=== PATIENT | female | born 1985 | race Caucasian/White ===

== ENCOUNTER 2023-05-10 09:27 | Emergency (ER) | payer OTHER, SELFPAY ==
[2023-05-10 09:36] VITALS: BP 145/104
--- NOTE | 2023-05-10 10:22 | ED.GENMED ---
History of Present Illness
General
Chief Complaint: Blood Pressure Problem
Time Seen by Provider: 05/10/23 09:57
Travel History
Have you had any contact with someone who has COVID-19?: No
Do you have any symptoms of coronavirus? Fever > 100 degrees, chills, cough, shortness of breath, sore throat, loss of taste or smell, muscle aches, or headache?: No
History of Present Illness
History of Present Illness:
37-year-old female presents to the emergency department for evaluation of sore throat. She was seen in urgent care last week and diagnosed with strep, started on a 5-day course of Augmentin. She states her symptoms did improve but again worsened
shortly after completing Augmentin yesterday. Went back to urgent care today where she had a positive rapid strep test. She notes that over the weekend she had transient hematuria and suprapubic discomfort, was told by urgent care that she could
have bladder cancer and was told to come to the ER for further evaluation. Denies any current lower abdominal pain.
Past History
Past History
ED Past Medical History: GERD (Gastritis) and Other (Spontaneous vaginal delivery . Gastritis, migraines, palpitations, Rectal bleeding, history of breast augmentation and then breast implant removal in July 2018)
ED Past Surgical History: Cholecystectomy and Other (Liver repair from trauma at age 6, breast augmentation, Breat implants removed 07/22)
Social History
Tobacco: Non-smoker
Alcohol: None
Drug: None
Personal:
Living: with family
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
Family History
Family History: Other (Noncontributory)
Review of Systems
Review of Systems
Allergies reviewed?: Yes
All Other Systems: ROS reviewed and negative except as documented in HPI and ROS
Phy Exam
Physical Exam
Physical Exam:
GEN: Well appearing, NAD, WDWN
HEENT: Oral mucosa moist, no scleral icterus. No tonsillar hypertrophy or exudates, uvula midline
Cardiac: Regular rate
Lung: No respiratory distress, no tachypnea
MSK: No gross deformity or injuries
Skin: Good color, no pallor or jaundice, no rashes
Neuro: AO x3, moves all extremities freely
Psych: Calm, cooperative
Course
Orders/Labs/Results
Orders:
Orders
05/10/23 10:33
Basic Metabolic Panel Urgent
Complete Blood Count/No Diff Urgent
Urine Microscopic Urgent
Date Specimen was Collected: 05/10/23
Time Specimen was Collected: 10:31
Abnormal Lab Results
05/10/23
10:33
RBC 4.08 L 10^6/uL
(4.20-5.40)
Hct 36.8 L %
(37.0-47.0)
MCH 31.9 H pg
(27.0-31.0)
MPV 10.5 H fL
(7.4-10.4)
Glucose 112 H mg/dl
(70-99)
05/10/23 10:33
05/10/23 10:33
Vital Signs
Initial and Last Documented VS:
Initial Vital Signs
Temp Pulse Resp BP Pulse Ox
98.6 F 100 18 145/104 97
05/10/23 09:36 05/10/23 09:36 05/10/23 09:36 05/10/23 09:36 05/10/23 09:36
Last Documented Vital Signs
Temp Pulse Resp BP Pulse Ox
98.6 F 90 16 114/73 99
05/10/23 09:36 05/10/23 12:08 05/10/23 12:08 05/10/23 12:08 05/10/23 12:08
MDM/Problems Addressed
MDM/Problems Addressed:
Patient presents from urgent care quite anxious regarding the possibility of bladder cancer as at urgent care she was told this could be a possibility given transient blood in the urine. I have reassured her that she has no risk factors for bladder
cancer particular given her young age and there is no blood in the urine to suggest this. Her labs are reassuring, particularly no evidence of renal injury. She did have a positive strep test at urgent care today, failed a course of Augmentin thus
we will switch to cephalexin for 10 days.
*Critical Care Note
Total Time (30-74mins, 75-104mins- exclusive of procedures): Not Applicable
ED Attending Note
-
Portions of this chart may have been created with voice recognition software.� Occasional wrong word or��sound alike� substitutions may have occurred due to the inherent limitations of voice recognition software.
Discharge Plan
Departure
Patient Disposition: Home (Routine Discharge)
Date of Disposition: 05/10/23
Time of Disposition: 12:00
Patient with high blood pressure during this ER visit?: No
Discharge Problem:
Acute streptococcal pharyngitis
Instructions: Strep Throat ED
Prescriptions:
New
cephalexin 500 mg tablet
500 mg PO BID 10 Days Qty: 20 0RF
No Action
pediatric multivitamin no.17 [Children's Chew Multivitamin] 1 EACH tablet,chewable
1 ea PO DAILY
Referrals:
Sanya Lora MD [Family Provider] -
Interventions
Interventions:
*Risk Screen - Suicide Last Done: 05/10/23 09:36
*General Assessment Last Done: 05/10/23 09:36
*Neglect/Abuse Screening Last Done: 05/10/23 09:36
ED- Fall Risk Assessment Last Done: 05/10/23 10:02
*ED COVID-19 Vaccine History Last Done: 05/10/23 09:36
*Nursing Disposition Last Done: 05/10/23 12:09
ED- Cardiac Assessment Last Done: 05/10/23 10:02
ED- Neurological Assessment Last Done: 05/10/23 10:02
ED- Pulmonary Assessment Last Done: 05/10/23 10:02
Discharge Date and Time
Discharge Date/Time: 05/10/23 12:09
[2023-05-10 10:53] LABS: Hematocrit 36.8 % (37.0-47.0); Mean Corp Hgb Conc. 35.3 g/dL (33.0-37.0); Mean Corpuscular Hgb 31.9 pg (27.0-31.0); Mean Corpuscular Volume 90.2 fL (81.0-99.0); Mean Platelet Volume 10.5 fL (7.4-10.4); Platelet Count 202 10^3/uL (130-400); Red Blood Cell Count 4.08 10^6/uL (4.20-5.40); Red Cell Dist. Width 11.9 % (11.5-14.5); White Blood Cell Count 6.8 10^3/uL (4.8-10.8)
[2023-05-10 11:14] LABS: Blood Urea Nitrogen 7 mg/dl (7-17); Calcium 9.2 mg/dl (8.4-10.2); Carbon Dioxide 26 mmol/L (22-30); Chloride 105 mmol/L (98-107); Glucose 112 mg/dl (70-99); Potassium 3.8 mmol/L (3.5-5.1); Sodium 138 mmol/L (135-145); eGFR > 60.00
[2023-05-10 11:57] LABS: Urine Amorphous Seen; Urine Red Blood Cell 0-2 /HPF (0-2); Urine White Cell 0-2 /HPF (0-5)
[2023-05-10 12:08] VITALS: BP 114/73
== END 2023-05-10 12:09 | disposition home or self-care (01) ==
LOC: EMR 09:27
PROVIDERS: Physician Assistant; EMERGENCY PHYSICIAN Emergency Medicine; FAMILY PHYSICIAN Internal Medicine
DX: J02.0 Streptococcal pharyngitis (principal)
CPT/HCPCS: 99283; 80048; 81015; 85027

== ENCOUNTER → 2023-05-11 12:21 | Outpatient (REF) | payer OTHER, SELFPAY ==
[2023-05-11 19:52] LABS: Urine Albumin Negative (Neg - Trace); Urine Bilirubin Negative (Negative); Urine Character Clear (Clear); Urine Color Straw; Urine Glucose Negative (Negative); Urine Ketone Negative (Negative); Urine Leukocyte Negative (Negative); Urine Nitrite Negative (Negative); Urine Occult Blood Negative (Negative); Urine Specific Gravity 1.005 (<1.030); Urine Urobilinogen Negative (Neg - 1+)
== END ==
LOC: CLAB 12:21
PROVIDERS: ATTENDING PHYSICIAN Physician Assistant
DX: R39.9 Unspecified symptoms and signs involving the genitourinary system (principal)
CPT/HCPCS: 81003; 87086

== ENCOUNTER 2023-06-02 16:37 | Emergency (ER) | payer OTHER, SELFPAY ==
[2023-06-02 16:48] VITALS: BP 146/83
[2023-06-02 17:19] LABS: Urine Albumin Negative (Neg - Trace); Urine Bilirubin Negative (Negative); Urine Character Very Cloudy (Clear); Urine Color Yellow; Urine Glucose Negative (Negative); Urine Ketone Negative (Negative); Urine Leukocyte Negative (Negative); Urine Nitrite Negative (Negative); Urine Occult Blood Negative (Negative); Urine Urobilinogen Negative (Neg - 1+)
[2023-06-02 17:21] LABS: % Basophils 0.9 % (0-2); % Eosinophils 1.2 % (0-6); % Immature Granulocytes 0.3 % (0-0.5); % Lymphocytes 21.7 % (20.5-51.1); % Monocytes 7.5 % (1.7-9.3); % Neutrophils 68.4 % (42.2-75.2); Absolute Basophils 0.1 10^3/uL (0-0.2); Absolute Eosinophils 0.1 10^3/uL (0-0.7); Absolute Lymphocytes 1.3 10^3/uL (1.2-3.4); Absolute Monocytes 0.4 10^3/uL (0.1-0.6); Hematocrit 37.7 % (37.0-47.0); Hemoglobin 12.8 g/dL (12.0-16.0); Mean Corpuscular Hgb 30.8 pg (27.0-31.0); Mean Corpuscular Volume 90.8 fL (81.0-99.0); Mean Platelet Volume 10.4 fL (7.4-10.4); Nucleated Red Blood Cells % 0 %; Platelet Count 207 10^3/uL (130-400); Red Blood Cell Count 4.15 10^6/uL (4.20-5.40); Red Cell Dist. Width 11.9 % (11.5-14.5); White Blood Cell Count 5.8 10^3/uL (4.8-10.8)
[2023-06-02 17:29] LABS: HCG, Serum Qualitative Screen Negative
[2023-06-02 17:32] LABS: ALT (SGPT) 17 U/L (0-35); AST (SGOT) 25 U/L (14-36); Albumin 4.5 g/dl (3.5-5.0); Alkaline Phosphatase 54 U/L (38-126); Blood Urea Nitrogen 9 mg/dl (7-17); Calcium 9.1 mg/dl (8.4-10.2); Carbon Dioxide 25 mmol/L (22-30); Chloride 106 mmol/L (98-107); Glucose 105 mg/dl (70-99); Potassium 3.8 mmol/L (3.5-5.1); Sodium 136 mmol/L (135-145); Total Bilirubin 0.5 mg/dl (0.2-1.3); Total Protein 7.5 g/dl (6.3-8.2); eGFR > 60.00
--- NOTE | 2023-06-02 18:21 | ED.GENMED ---
History of Present Illness
<Lata Lewis PA-C - Last Filed: 06/02/23 19:27>
General
Chief Complaint: Urinary Symptoms
Source: patient
Exam Limitations: none
Time Seen by Provider: 06/02/23 17:49
Nursing documentation reviewed up to this point in time: agreed with
Travel History
Have you had any contact with someone who has COVID-19?: No
Do you have any symptoms of coronavirus? Fever > 100 degrees, chills, cough, shortness of breath, sore throat, loss of taste or smell, muscle aches, or headache?: No
History of Present Illness
History of Present Illness:
The patient is a very pleasant 37-year-old female with no significant past medical history presenting for evaluation of urinary frequency. Patient currently complaining of increased urinary frequency and irritation. She denies any recent fever,
chills, abdominal pain, back pain, abnormal vaginal bleeding or discharge. She denies any hematuria.
Patient was recently treated for strep throat over the past month with Augmentin and Keflex. A few days into the Augmentin she started to notice urinary frequency and irritation. Symptoms of strep throat have cleared but the urinary symptoms have
persisted. She has been seen by both primary care and [facility]. Earlier today she had a pelvic exam at the [facility] and was told that everything appeared okay and they sent swabs for BV, yeast. She was then seen by the primary care provider due to an
increase in the pH of her urine to 8. Primary care was somewhat concerned that recent urinary symptoms may be due to strep infection affecting her kidneys.
Patient is sexually active with her only and has no concern for STDs. She has no past history of STDs.
Patient has no history of kidney stones or urinary tract infections.
Patient has no drug allergies.
Past History
<Lata Lewis PA-C - Last Filed: 06/02/23 19:27>
Past History
ED Past Medical History: GERD (Gastritis) and Other (Spontaneous vaginal delivery . Gastritis, migraines, palpitations, Rectal bleeding, history of breast augmentation and then breast implant removal in July 2018)
ED Past Surgical History: Cholecystectomy and Other (Liver repair from trauma at age 6, breast augmentation, Breat implants removed 07/22)
Social History
Tobacco: Non-smoker
Alcohol: None
Drug: None
Personal:
Living: with family
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
Family History
Family History: Other (Noncontributory)
Phy Exam
<Lata Lewis PA-C - Last Filed: 06/02/23 19:27>
Physical Exam
Physical Exam:
General: Well appearing and non-toxic
HEENT: Atraumatic, normocephalic; pupils equal round reactive to light bilaterally, posterior pharynx without erythema or edema, no tonsillar edema or exudates, uvula midline, protecting airway
Neck: appears supple
CV: Regular rate and rhythm, heart sounds normal, no evidence of cyanosis
Resp: Lungs clear; no evidence of respiratory distress
Abd: Soft, nontender, non-distended; no CVA tenderness
Extremities: No deformities, no evidence of cyanosis or edema
Neuro: alert and oriented to person place time, speech normal, no focal motor deficits
Psych: Anxious
Skin: Intact, no rashes
Course
<Lata Lewis PA-C - Last Filed: 06/02/23 19:27>
Orders/Labs/Results
Orders:
Orders
06/02/23 16:54
Test Result ONCE
06/02/23 17:07
CMP [Comprehensive Metabolic Panel] Urgent
Complete Blood Count/With Diff Urgent
HCG, Serum Qualitative Screen Urgent
Urinalysis Reflex To Culture Urgent
Date Specimen was Collected: 06/02/23
Time Specimen was Collected: 16:54
Abnormal Lab Results
06/02/23
17:07
RBC 4.15 L 10^6/uL
(4.20-5.40)
Glucose 105 H mg/dl
(70-99)
06/02/23 17:07
06/02/23 17:07
Vital Signs
Initial and Last Documented VS:
Initial Vital Signs
Temp Pulse Resp BP Pulse Ox
98.3 F 89 16 146/83 99
06/02/23 16:48 06/02/23 16:48 06/02/23 16:48 06/02/23 16:48 06/02/23 16:48
Last Documented Vital Signs
Temp Pulse Resp BP Pulse Ox
98.3 F 89 16 146/83 99
06/02/23 16:48 06/02/23 16:48 06/02/23 16:48 06/02/23 16:48 06/02/23 16:48
Premalt;Karthik Bar, DO - Last Filed: 06/02/23 22:44>
Orders/Labs/Results
Orders:
Orders
06/02/23 16:54
Test Result ONCE
06/02/23 17:07
CMP [Comprehensive Metabolic Panel] Urgent
Complete Blood Count/With Diff Urgent
HCG, Serum Qualitative Screen Urgent
Urinalysis Reflex To Culture Urgent
Date Specimen was Collected: 06/02/23
Time Specimen was Collected: 16:54
Abnormal Lab Results
06/02/23
17:07
RBC 4.15 L 10^6/uL
(4.20-5.40)
Glucose 105 H mg/dl
(70-99)
06/02/23 17:07
06/02/23 17:07
Vital Signs
Initial and Last Documented VS:
Initial Vital Signs
Temp Pulse Resp BP Pulse Ox
98.3 F 89 16 146/83 99
06/02/23 16:48 06/02/23 16:48 06/02/23 16:48 06/02/23 16:48 06/02/23 16:48
Last Documented Vital Signs
Temp Pulse Resp BP Pulse Ox
98.3 F 89 16 146/83 99
06/02/23 16:48 06/02/23 16:48 06/02/23 16:48 06/02/23 16:48 06/02/23 16:48
<Lata Lewis PA-C - Last Filed: 06/02/23 19:27>
MDM/Problems Addressed
Differential Diagnosis Includes:
UTI, pyelonephritis, bacterial vaginosis, vaginal yeast infection, nephrolithiasis, Post streptococcal glomerulonephritis, interstitial cystitis
MDM/Problems Addressed:
Patient is a 37-year-old female presenting for evaluation of persistent urinary frequency and irritation in the setting of recent strep throat infection. Patient completed course of antibiotics for strep throat with resolution of symptoms. She
endorses increased urinary frequency and some urethral irritation since. No fever, chills, abdominal pain, back pain, hematuria, vaginal discharge or bleeding. Patient very concerned regarding possibility of kidney failure related to recent strep
infection. She was seen by [facility] who performed a few vaginal swabs earlier today pending results for BV, yeast. Vital signs stable, afebrile. Physical exam as document above. She is very well-appearing, although anxious. Abdomen is soft and
nontender, no CVA tenderness. Lungs clear, heart rate regular. Given patient had pelvic exam earlier today at [facility] without any abnormal findings�will not repeat now. Will check basic labs, urinalysis-although do not suspect kidney injury based
on patient presentation and history.
CBC without any clinically significant abnormalities. CMP without any clinically significant abnormalities. test negative. Urinalysis negative for any signs of infection, hematuria, protein. Labs show no evidence of renal insufficiency
and/or failure. No findings suggestive of poststreptococcal glomerulonephritis.
Lengthy discussion with patient regarding lab results and normal kidney function. Will discharge patient with return precautions, urology follow-up. Patient is comfortable this plan. All questions answered.
Chronic conditions affecting care:
N/A
Acute Exacerbation and/or Progression of Chronic Illness:
N/A
<Lata Lewis PA-C - Last Filed: 06/02/23 19:27>
*Pulse Oximetry
Patient hypoxic: no
*Clerk Secretary Interpretation
Rate: Clerk Secretary- N/A
*Critical Care Note
Total Time (30-74mins, 75-104mins- exclusive of procedures): Not Applicable
ED Attending Note
<Lata Lewis PA-C - Last Filed: 06/02/23 19:27>
-
Portions of this chart may have been created with voice recognition software.� Occasional wrong word or��sound alike� substitutions may have occurred due to the inherent limitations of voice recognition software.
<Karthik Bar DO - Last Filed: 06/02/23 22:44>
ED Attending Note
Patient seen and examined by attending physician: Yes
I performed a history and physical exam of patient and discussed management with resident, I reviewed resident's note and agree with documented findings and plan of care.: Yes
ED Attending Note:
I have reviewed and agree with history and treatment plan by Lata Lewis. My exam revealed 37-year-old female no acute distress. No signs of kidney failure or UTI. Patient stable for discharge.
Discharge Plan
Departure
Patient Disposition: Home (Routine Discharge)
Date of Disposition: 06/02/23
Time of Disposition: 19:06
Patient with high blood pressure during this ER visit?: Yes
Condition: Good
Discharge Problem:
Urinary frequency
Instructions: BLOOD PRESSURE
Prescriptions:
No Action
pediatric multivitamin no.17 [Children's Chew Multivitamin] 1 EACH tablet,chewable
1 ea PO DAILY
cephalexin 500 mg tablet
500 mg PO BID 10 Days Qty: 20 0RF
Referrals:
Blayne,Nelly, DO [Active] - As needed
Sanya Lora MD [Family Provider] -
Activity Restrictions/Additional Instructions:
-Return to the emergency department with any high fevers, severe abdominal/back pain, intractable vomiting, worsening in current symptoms, or any other concerns
-Stay well hydrated
-Follow- up with OBGYN and primary care for further evaluation/management
-If symptoms persist - you can follow up with urology
Interventions
Interventions:
*Risk Screen - Suicide Last Done: 06/02/23 16:48
*Neglect/Abuse Screening Last Done: 06/02/23 16:48
ED- Fall Risk Assessment Last Done: 06/02/23 17:58
*ED COVID-19 Vaccine History Last Done: 06/02/23 16:48
*Nursing Disposition Last Done: 06/02/23 19:15
ED-Female Genitourinary Assessment Last Done: 06/02/23 17:57
Discharge Date and Time
Discharge Date/Time: 06/02/23 19:15
== END 2023-06-02 19:15 | disposition home or self-care (01) ==
LOC: EMR 16:37
PROVIDERS: Student in an Organized Health Care Education/Training Program; EMERGENCY PHYSICIAN Emergency Medicine; FAMILY PHYSICIAN Internal Medicine
DX: R35.0 Frequency of micturition (principal); R30.9 Painful micturition, unspecified; R03.0 Elevated blood-pressure reading, without diagnosis of hypertension; Z32.02 Encounter for pregnancy test, result negative
CPT/HCPCS: 99283; 80053; 81003; 84703; 85025

== ENCOUNTER 2024-06-17 09:57 | Emergency (ER) | payer OTHER, SELFPAY ==
--- NOTE | 2024-06-17 10:02 | EDRN ---
Pt distressed, [facility] Pt did not want VS or discharge paperwork. Pt did not want to wait. Seen by Brittani Kelley NP.
--- NOTE | 2024-06-17 10:11 | ED.GENMED ---
History of Present Illness
General
Chief Complaint: Breast Problem
Source: patient
Exam Limitations: none
Time Seen by Provider: 06/17/24 10:08
Nursing documentation reviewed up to this point in time: agreed with
History of Present Illness
History of Present Illness:
38 yo female here because she feels a lump in left breast this a.m. She states 'I'm going to worry myself sick' over the weekend. Denies pain, fever. Denies any family history of breast CA.
Past History
Past History
ED Past Medical History: GERD (Gastritis), Psychiatric (admits to being an anxious person) and Other (Spontaneous vaginal delivery . Gastritis, migraines, palpitations, Rectal bleeding, history of breast augmentation and then breast implant removal
in July 2018)
ED Past Surgical History: Cholecystectomy and Other (Liver repair from trauma at age 6, breast augmentation, Breat implants removed 07/22)
Social History
Tobacco: Non-smoker
Alcohol: None
Drug: None
Personal:
Living: with family
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
Family History
Family History: Other (Noncontributory)
Review of Systems
Review of Systems
Allergies reviewed?: Yes
All Other Systems: ROS reviewed and negative except as documented in HPI and ROS
Constitutional: Denies fever
Skin: Reports other (feels lump left breast this a.m.)
Phy Exam
Physical Exam
Physical Exam:
PHYSICAL EXAMINATION:
General: no apparent distress, not acutely ill
Neuro: alert and oriented.
Psychiatric: well kept. anxious, interactive and cooperative
Musculoskeletal: Moves with ease
Skin: Warm, pink. Breast exam: L breast with 5 mm hard, mobile, nontender mass at 2 o'clock just lateral to areola. No swelling, redness. Rest of exams of both breasts reveal no abnormality
MDM/Problems Addressed
MDM/Problems Addressed:
38 yo female here because she feels a lump in left breast this a.m. She states 'I'm going to worry myself sick' over the weekend. Denies pain, fever. Denies any family history of breast CA.
Pt seen prior to discharge at [facility] request
Examined pt in room P-1
Lengthy conversation regarding non-worrisome possibilities of the area (ie benign cyst, blocked duct) trying to calm her. She is not tearful but anxious and admits she's normally a worrier.
Explained to pt she needs either US or mammogram which we do not do on an emergency basis.
Referred back to her [facility] and also gave Dr. Prieto's information
Patient left prior to receiving my discharge information. Nurse in triage Yasmine says that patient told her she already knows who Dr. Prieto is. Pt left prior to getting VS.
*Critical Care Note
Total Time (30-74mins, 75-104mins- exclusive of procedures): Not Applicable
ED Attending Note
-
Portions of this chart may have been created with voice recognition software.� Occasional wrong word or��sound alike� substitutions may have occurred due to the inherent limitations of voice recognition software.
Discharge Plan
Departure
Patient Disposition: Home (Routine Discharge)
Date of Disposition: 06/17/24
Time of Disposition: 10:08
Patient with high blood pressure during this ER visit?: No
Condition: Good
Discharge Problem:
Breast lump on left side at 2 o'clock position
Instructions: Common breast problems
Prescriptions:
No Action
pediatric multivitamin no.17 [Children's Chew Multivitamin] 1 EACH tablet,chewable
1 ea PO DAILY
cephalexin 500 mg tablet
500 mg PO BID 10 Days Qty: 20 0RF
Referrals:
Nette Prieto MD [Active] - Call in 1-3 days for appt
Gabriela Li DO [Active] - Call in 1-3 days for appt
Sanya Lora MD [Family Provider] -
Activity Restrictions/Additional Instructions:
As we discussed, there is nothing that we can do on an emergency basis at this time
Call Dr. Li and/or Dr. Prieto the breast specialist and make next available appointment.
Interventions
Interventions:
*Nursing Disposition Last Done: 06/17/24 10:12
Discharge Date and Time
Discharge Date/Time: 06/17/24 10:13
Print Language: SINHALA
== END 2024-06-17 10:13 | disposition home or self-care (01) ==
LOC: EMR 09:57
PROVIDERS: EMERGENCY PHYSICIAN Emergency Medicine; FAMILY PHYSICIAN Internal Medicine
DX: N63.21 Unspecified lump in the left breast, upper outer quadrant (principal); Z87.19 Personal history of other diseases of the digestive system; Z98.86 Personal history of breast implant removal
CPT/HCPCS: 99282

== ENCOUNTER → 2024-06-28 08:50 | Outpatient (REF) | payer OTHER, SELFPAY | LOC: WDC 08:50 | PROVIDERS: ATTENDING PHYSICIAN Obstetrics & Gynecology; FAMILY PHYSICIAN Internal Medicine | DX: N63.20 Unspecified lump in the left breast, unspecified quadrant (principal); N63.21 Unspecified lump in the left breast, upper outer quadrant | CPT/HCPCS: 76642 ==

== ENCOUNTER → 2024-11-14 18:35 | Outpatient (REF) | payer OTHER, SELFPAY | LOC: MRI 3T 18:35 | PROVIDERS: ATTENDING PHYSICIAN Obstetrics & Gynecology; FAMILY PHYSICIAN Internal Medicine | DX: N63.20 Unspecified lump in the left breast, unspecified quadrant (principal) | CPT/HCPCS: 77047; C8937 ==

== ENCOUNTER 2025-02-01 16:37 | Emergency (ER) | payer OTHER, SELFPAY ==
[2025-02-01 16:40] VITALS: BP 121/90
[2025-02-01 17:38] VITALS: BMI 18.6
[2025-02-01 17:40] VITALS: BP 127/83
--- NOTE | 2025-02-01 17:54 | ED.GENMED ---
History of Present Illness
General
Chief Complaint: Headache
Source: patient
Exam Limitations: none
Time Seen by Provider: 02/01/25 17:15
History of Present Illness
History of Present Illness:
39yoF with a history of migraines presenting for evaluation of a neck lump. Patient started to experience a migraine earlier today. She typically has a migraine when she ovulates or menstruates. She started to ovulate today so this headache is
not unusual and feels identical to her prior migraines. Headache is currently rated as an 8 out of 10 in severity. She was feeling in her neck today and noticed a lump on the right posterior aspect of the neck. She became concerned so decided to
go to the urgent care. Urgent care instructed her to go to the ED for ultrasound and blood work. Patient states she has a history of medical anxiety and is worried that she has cancer. She denies any fevers, weight loss, night sweats, ear pain,
sore throat, URI symptoms. Her son currently has ecde-eklo-afv-mouth disease.
Past History
Past History
ED Past Medical History: GERD (Gastritis), Psychiatric (admits to being an anxious person) and Other (Spontaneous vaginal delivery . Gastritis, migraines, palpitations, Rectal bleeding, history of breast augmentation and then breast implant removal
in July 2018)
ED Past Surgical History: Cholecystectomy and Other (Liver repair from trauma at age 6, breast augmentation, Breat implants removed 07/22)
Social History
Tobacco: Non-smoker
Alcohol: None
Drug: None
Personal:
Living: with family
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
Family History
Family History: Other (Noncontributory)
Phy Exam
General Physical Exam
General Presentation: well appearing and no apparent distress
General Skin: warm and dry
General Habitus: normal
General Mental: alert
ENT Exam
ENT Exam: TM's normal, pharynx normal, neck supple, normocephalic and other (Small palpable lump <1cm noted in R postauricular area that is non-tender. No overlying erythema or warmth.)
Pulmonary Exam
Pulmonary Exam: no respiratory distress
Neurological Exam
Neurological Exam: alert
Mohsen Coma Scale
Eye Opening: Spontaneous
Verbal Response: Oriented
Motor Response: Obeys Commands
GCS Total Score: 15
Skin Exam
Skin Exam: normal color and warm/dry
Psychiatric Exam
Psychiatric Exam: normal mood/affect
Course
Orders/Labs/Results
Orders:
Orders
02/01/25 17:52
Acetaminophen [Tylenol] 1,000 mg PO NOW STA
Neck US [US Thyroid/Neck/Head] Urgent
Comment:
Reason For Exam: palpable lump in R posterior neck
02/01/25 18:05
Complete Blood Count/With Diff Urgent
Comprehensive Metabolic Panel Urgent
Abnormal Lab Results
02/01/25
18:05
RBC 3.94 L 10^6/uL
(4.20-5.40)
MCH 31.5 H pg
(27.0-31.0)
MPV 10.5 H fL
(7.4-10.4)
Absolute Lymphs (auto) 1.1 L 10^3/uL
(1.2-3.4)
BUN 6 L mg/dl
(7-17)
Glucose 100 H mg/dl
(70-99)
02/01/25 18:05
02/01/25 18:05
Vital Signs
Initial and Last Documented VS:
Initial Vital Signs
Temp Pulse Resp BP Pulse Ox
97.7 F 90 20 121/90 100
02/01/25 16:40 02/01/25 16:40 02/01/25 16:40 02/01/25 16:40 02/01/25 16:40
Last Documented Vital Signs
Temp Pulse Resp BP Pulse Ox
97.7 F 99 18 128/90 100
02/01/25 16:40 02/01/25 20:51 02/01/25 20:51 02/01/25 20:51 02/01/25 20:51
MDM/Problems Addressed
Differential Diagnosis Includes:
39yoF here with a lump in the back of her neck that she noticed today. Also c/o a headache which feels like her typical migraines. VSS. She is well-appearing in no distress. Neck is supple without nuchal rigidity. There is a small nontender lump
in the right postauricular region on exam. Differential diagnosis includes: Lymphadenopathy, bony prominence, no evidence of abscess
Labs obtained which are unremarkable including normal white count. Neck ultrasound also obtained which shows a small hypoechoic nodule most likely representing a tiny lymph node. Patient advised to monitor her symptoms at home and follow-up with
her PCP. Patient worried about underlying lymphoma. Discussed that she may need biopsy if symptoms do not resolve in 6 weeks. She was discharged in stable condition.
*Pulse Oximetry
SaO2: 100
Oxygen Mode of Delivery: Room air
Patient hypoxic: no
*Critical Care Note
Total Time (30-74mins, 75-104mins- exclusive of procedures): Not Applicable
ED Attending Note
-
Portions of this chart may have been created with voice recognition software.� Occasional wrong word or��sound alike� substitutions may have occurred due to the inherent limitations of voice recognition software.
Discharge Plan
Departure
Patient Disposition: Home (Routine Discharge)
Date of Disposition: 02/01/25
Time of Disposition: 21:48
Patient with high blood pressure during this ER visit?: No
Discharge Problem:
Lymphadenopathy
Instructions: Swollen lymph nodes in adults
Prescriptions:
No Action
pediatric multivitamin no.17 [Children's Chew Multivitamin] 1 EACH tablet,chewable
1 ea PO DAILY
cephalexin 500 mg tablet
500 mg PO BID 10 Days Qty: 20 0RF
Referrals:
Sanya Lora MD [Family Provider, Internal Medicine]
Activity Restrictions/Additional Instructions:
Please follow-up with your family doctor. You may need a biopsy if the lymph node does not go away in 6 weeks.
Interventions
Interventions:
*Risk Screen - Suicide Last Done: 02/01/25 16:40
*General Assessment Last Done: 02/01/25 17:39
*Neglect/Abuse Screening Last Done: 02/01/25 16:40
*ED- Fall Risk Assessment Last Done: 02/01/25 17:39
*ED COVID-19 Vaccine History Last Done: 02/01/25 17:39
*ED Influenza Vaccine History Last Done: 02/01/25 17:39
*Nursing Disposition Last Done: 02/01/25 22:02
ED- Neurological Assessment Last Done: 02/01/25 17:42
Discharge Date and Time
Discharge Date/Time: 02/01/25 22:03
Print Language: [email or web address]
[2025-02-01] MEDS: TYLENOL 1000 MG PO (18:00)
[2025-02-01 18:15] LABS: Hematocrit 37.6 % (37.0-47.0); Hemoglobin 12.4 g/dL (12.0-16.0); Mean Corp Hgb Conc. 33.0 g/dL (33.0-37.0); Mean Corpuscular Volume 95.4 fL (81.0-99.0); Nucleated Red Blood Cells % 0 %; Platelet Count 223 10^3/uL (130-400); Red Cell Dist. Width 12.0 % (11.5-14.5)
[2025-02-01 18:31] LABS: ALT (SGPT) 17 U/L (0-35); AST (SGOT) 20 U/L (14-36); Albumin 4.5 g/dl (3.5-5.0); Alkaline Phosphatase 45 U/L (38-126); Blood Urea Nitrogen 6 mg/dl (7-17); Calcium 9.4 mg/dl (8.4-10.2); Carbon Dioxide 25 mmol/L (22-30); Chloride 105 mmol/L (98-107); Estimated Creatinine Clearance 88 ml/min; Glucose 100 mg/dl (70-99); Potassium 3.9 mmol/L (3.5-5.1); Sodium 139 mmol/L (135-145); Total Protein 7.2 g/dl (6.3-8.2); eGFR > 60.00
[2025-02-01 20:51] VITALS: BP 128/90
== END 2025-02-01 22:03 | disposition home or self-care (01) ==
LOC: EMR 16:37
PROVIDERS: Physician Assistant; EMERGENCY PHYSICIAN Emergency Medicine; FAMILY PHYSICIAN Internal Medicine
DX: R59.1 Generalized enlarged lymph nodes (principal); G43.909 Migraine, unspecified, not intractable, without status migrainosus
CPT/HCPCS: 99285; 76536; 80053; 85025

== ENCOUNTER → 2025-02-27 06:50 | Outpatient (REF) | payer OTHER, SELFPAY | LOC: HWRAD 06:50 | PROVIDERS: ATTENDING PHYSICIAN Student in an Organized Health Care Education/Training Program; FAMILY PHYSICIAN Internal Medicine | DX: R59.0 Localized enlarged lymph nodes (principal) | CPT/HCPCS: 76536 ==